=== PATIENT | male | born 1950 | race Caucasian/White ===

== ENCOUNTER → 2021-01-29 | Outpatient (CLI) | payer MEDICARE, OTHER ==
[~2021-01-29] MED LIST: ESOM40CA PO
--- NOTE | 2021-01-31 11:39 | RAD ---
CT ABDOMEN+PELVIS WO History: Reason: GENERALIZED ABDOMINAL PAIN, NAUSEA/VOMITING / Spl. Instructions: PT HAD HICCUPS. BES T IMAGES OBTAINED / History: Technique: Noncontrast examination of the abdomen and pelvis. Coronal and sagittal reconstructions we re performed. Exposure: One or more of the following individualized dose reduction techniques were utilized for thi s examination: 1. Automated exposure control 2. Adjustment of the mA and/or kV according to patient size 3. Use of iterative reconstruction technique. Comparison: None Findings: Motion degraded evaluation. Lower chest: Calcified pleural plaques, can be seen with prior asbestos exposure. Calcified mediastin al and hilar lymph nodes as well as calcified pulmonary nodules, likely prior granulomatous disease. Scattered linear atelectasis bilaterally. Small hiatal hernia. Abdomen and pelvis: The liver, spleen, adrenal glands, pancreas and gallbladder are unremarkable. No biliary ductal dilatation. Lobulated left renal cyst measures 4.3 x 3.4 cm. No renal calculus. No hydronephrosis. No ureteral or urinary bladder calculus. Mild colonic diverticulosis. Normal appendix. No evidence of bowel obstruction. Small duodenal divert iculum. No pathologic lymphadenopathy. No ascites. Bilateral fat-containing inguinal hernias, right g reater than left. Small fat-containing umbilical hernia. Mild atheromatous plaque throughout the paul neurysmal abdominal aorta and branch vessels. Bones: No pathologic osseous lesions. Impression: 1. No acute abdominal or pelvic pathology. 2. Bilateral calcified pleural plaques, can be seen with prior asbestos exposure. 3. Small hiatal hernia. Electronically signed by: Dante Beebe DO (01/31/2021 11:36 AM) [facility]
== END ==
LOC: CT 13:25
PROVIDERS: ATTEND Nurse Practitioner Adult Health
DX: K44.9 Diaphragmatic hernia without obstruction or gangrene (principal); J92.9 Pleural plaque without asbestos; J98.11 Atelectasis; R91.8 Other nonspecific abnormal finding of lung field; K57.10 Diverticulosis of small intestine without perforation or abscess without bleeding; K57.30 Diverticulosis of large intestine without perforation or abscess without bleeding; N28.1 Cyst of kidney, acquired; K40.90 Unilateral inguinal hernia, without obstruction or gangrene, not specified as recurrent; K42.9 Umbilical hernia without obstruction or gangrene; I70.0 Atherosclerosis of aorta; I89.8 Other specified noninfective disorders of lymphatic vessels and lymph nodes
CPT/HCPCS: 74176